=== PATIENT | male | born 1960 | race African-American/Black ===

== ENCOUNTER 2018-07-02 13:37 | Inpatient (IN) | payer MEDICAID, OTHER ==
[~2018-07-02] VITALS: Ht 152.4 cm; Wt 121.6 kg
[~2018-07-02 13:37] MED LIST: AMLO10TA80 PO; ASPI-1159 PO; CARSR90 MT; HYDR-2510 PO; METO25TA6 PO; NAPR-681 PO; OMEP20CA4 PO; TAMS-11 PO
[2018-07-02] MEDS ORDERED: SODIUM CHLORIDE 0.9% 1,000 ML IV ONE (18:32)
[2018-07-02] MEDS ORDERED: ONDANSETRON HCL 4MG/2ML INJ IV ONE (18:45)
[2018-07-02] MEDS ORDERED: AZITHROMYCIN 500 MG TABLET PO ONE (18:45)
[2018-07-02] MEDS ORDERED: CEFTRIAXONE 1 G PREMIX 50 ML IV ONE (18:45)
[2018-07-02] MEDS ORDERED: MORPHINE SULFATE 4 MG/ML CPJ (NOT FOR IM USE) IV ONE (18:45)
[2018-07-02 19:11] LABS: BASOPHILS % 0.8 % (0.0-2.0); CHLORIDE 108 mEq/L (98-107); EOSINOPHILS % 1.8 % (0.0-5.0); HEMATOCRIT. 37.5 % (42.0-52.0); LYMPHOCYTES % 30.2 % (20.0-50.0); MEAN CORPUSCULAR HEMOGLOBIN 27.1 pg (28.0-32.0); MEAN CORPUSCULAR VOLUME 84.6 fL (80.0-94.0); MEAN PLATELET VOLUME 10.2 fl (7.4-10.4); MONOCYTES % 8.8 % (2.0-8.0); NEUTROPHILS % 58.4 % (40.0-76.0); PLATELET 284 x1000/uL (130-400); RED BLOOD CELL COUNT 4.44 mill/uL (4.7-6.1); RED CELL DISTRIBUTION WIDTH 16.2 % (11.6-14.6)
[2018-07-02 19:15] LABS: ETHANOL BLOOD < 10 mg/dL
[2018-07-02 19:20] LABS: PARTIAL THROMBOPLASTIN TIME 28.6 sec (23.4-31.0); PROTHROMBIN TIME 9.7 sec (9.1-11.1)
[2018-07-02 19:37] LABS: CLARITY URINE CLEAR (CLEAR); COLOR URINE YELLOW (YELLOW); KETONES URINE TRACE (NEGATIVE); LEUKOCYTE ESTERASE URINE NEGATIVE (NEGATIVE); NITRITE URINE NEGATIVE (NEGATIVE); OCCULT BLOOD URINE NEGATIVE (NEGATIVE); PROTEIN URINE 3+ (NEGATIVE); SPECIFIC GRAVITY URINE 1.026 (1.005-1.030); UROBILINOGEN URINE 0.2 E.U./dL (0.2-1.0)
[2018-07-02 20:16] LABS: METHADONE URINE SCREEN NEGATIVE (NEGATIVE); OPIATES URINE SCREEN NEGATIVE (NEGATIVE)
[2018-07-02 20:17] LABS: *AMPHETAMINES SCREEN URINE PRESUMTIVE POSITIVE (NEGATIVE); *BARBITURATES SCREEN URINE NEGATIVE (NEGATIVE); *BENZODIAZEPINES SCREEN URINE NEGATIVE (NEGATIVE); *COCAINE SCREEN URINE NEGATIVE (NEGATIVE); CANNABINOID URINE SCREEN NEGATIVE (NEGATIVE); PHENCYCLIDINE URINE SCREEN PRESUMTIVE POSITIVE (NEGATIVE)
[2018-07-02] MEDS ORDERED: ASPIRIN 325MG EC TABLET PO ONE (20:45)
[2018-07-02] MEDS ORDERED: ACETAMINOPHEN 325MG TABLET PO PRN (21:15)
[2018-07-02] MEDS ORDERED: DOCUSATE SODIUM 100MG CAPSULE PO PRN (21:15)
[2018-07-02] MEDS ORDERED: MAGNESIUM/ALUMINUM HYDROXIDE/SIMETHICONE 30ML UDC PO PRN (21:15)
[2018-07-02] MEDS ORDERED: HYDROCODONE/ACETAMINOPHEN 5/325MG TABLET PO PRN (21:15)
[2018-07-02] MEDS ORDERED: LORAZEPAM 2MG/ML CPJ IV PRN (21:15)
[2018-07-02] MEDS ORDERED: MORPHINE SULFATE 4 MG/ML CPJ (NOT FOR IM USE) IV PRN (21:15)
[2018-07-02] MEDS ORDERED: GUAIFENESIN 200MG/10ML SUGAR FREE UDC PO PRN (21:15)
[2018-07-02] MEDS ORDERED: ONDANSETRON HCL 4MG/2ML INJ IV PRN (21:15)
[2018-07-02] MEDS ORDERED: NA PHOS,M-B/NA PHOS,DI-BA ENEMA 118ML PR PRN (21:15)
[2018-07-02] MEDS ORDERED: IPRATROPIUM/ALBUTEROL 0.5-3(2.5)MG/3ML NEB INH PRN (21:15)
[2018-07-02] MEDS ORDERED: ENOXAPARIN 40MG/0.4ML SYR SUBCUT SCH (21:15)
[2018-07-02] MEDS ORDERED: DIPHENHYDRAMINE 50MG/ML VIAL IV PRN (21:15)
[2018-07-03 06:38] LABS: BASOPHILS % 0.4 % (0.0-2.0); HEMATOCRIT. 37.2 % (42.0-52.0); HEMOGLOBIN. 12.1 g/dL (14.0-18.0); LYMPHOCYTES % 41.2 % (20.0-50.0); MEAN CORPUSCULAR HEMOGLOBIN 27.3 pg (28.0-32.0); MEAN CORPUSCULAR VOLUME 84.3 fL (80.0-94.0); MEAN PLATELET VOLUME 10.1 fl (7.4-10.4); MONOCYTES % 8.9 % (2.0-8.0); NEUTROPHILS % 47.5 % (40.0-76.0); PLATELET 276 x1000/uL (130-400); RED BLOOD CELL COUNT 4.42 mill/uL (4.7-6.1); RED CELL DISTRIBUTION WIDTH 16.4 % (11.6-14.6)
[2018-07-03] MEDS: CLONIDINE 0.1MG TABLET PO PRN ×2 (08:33→21:41)
[2018-07-03] MEDS ORDERED: ASPIRIN 81MG EC TABLET PO SCH (09:00)
[2018-07-03 09:55] LABS: CHLORIDE 109 mEq/L (98-107)
[2018-07-03 10:02] LABS: LDL CHOLESTEROL 102 mg/dL (5-100)
[2018-07-03 10:03] LABS: HDL CHOLESTEROL 47 mg/dL (40-59)
[2018-07-03 10:04] LABS: T4 FREE 1.06 ng/dL (0.76-1.46)
[2018-07-03] MEDS ORDERED: DEXTROSE 50% WATER 50ML SYRINGE IV PRN ×3 (10:45→11:15)
[2018-07-03 11:15] VITALS: BP 188/84
[2018-07-03] MEDS ORDERED: ENOXAPARIN 40MG/0.4ML SYR SUBCUT SCH ×2 (11:15)
[2018-07-03 12:00] VITALS: BP 188/84
[2018-07-03] MEDS ORDERED: BLOOD SUGAR DIAGNOSTIC STRIP TEST SCH ×2 (13:00→13:15)
[2018-07-03] MEDS ORDERED: INSULIN LISPRO 100 UNITS/ML SUBCUT SCH ×2 (13:20→13:30)
[2018-07-03] MEDS ORDERED: SODIUM POLYSTYRENE SULFONATE 15 G/60 ML BOT PO NR (14:00)
[2018-07-03] MEDS ORDERED: HYDRALAZINE HCL 50MG TABLET PO SCH ×2 (14:00→14:15)
[2018-07-03] MEDS: SODIUM CHLORIDE 0.45% 1,000 ML IV SCH (14:15)
[2018-07-03 15:43] VITALS: BP 188/84
[2018-07-03] MEDS: HYDRALAZINE HCL 50MG TABLET PO SCH ×2 (16:13→23:59)
[2018-07-03 16:24] VITALS: BP 162/82
[2018-07-03] MEDS: INSULIN LISPRO 100 UNITS/ML SUBCUT SCH ×2 (17:17→21:00)
[2018-07-03] MEDS: BLOOD SUGAR DIAGNOSTIC STRIP TEST SCH ×2 (17:17→21:18)
[2018-07-03 20:00] VITALS: BP 172/78
[2018-07-03 22:47] LABS: CREATINE KINASE 127 IU/L (39-308)
[2018-07-04] VITALS: BP 155/73
[2018-07-04] MEDS: SODIUM CHLORIDE 0.45% 1,000 ML IV SCH (00:15)
[2018-07-04 04:00] VITALS: BP 166/77
[2018-07-04] MEDS: HYDRALAZINE HCL 50MG TABLET PO SCH (05:57)
[2018-07-04] MEDS: BLOOD SUGAR DIAGNOSTIC STRIP TEST SCH (06:03)
[2018-07-04] MEDS: INSULIN LISPRO 100 UNITS/ML SUBCUT SCH (06:05)
[2018-07-04 06:55] VITALS: BP 162/78
[2018-07-04] MEDS ORDERED: DEXTROSE 50% WATER 50ML SYRINGE IV PRN (08:45)
[2018-07-05 04:14] LABS: CHLAMYDIA TRACHOMATIS NAA Negative (Negative); NEISSERIA GONORRHOEAE NAA Negative (Negative)
[2018-07-05 19:09] LABS: ANTI-NUCLEAR ANTIBODIES DIRECT Positive (Negative)
[2018-07-08 05:20] LABS: COMPLEMENT C3 154 mg/dL (82-167)
== END 2018-07-04 08:44 | disposition home or self-care (01) | DRG 194 ==
LOC: ER 13:37 → 8WST 20:32 → EDBEDREQTM 20:50 → EDBEDREQ 20:50 → ENRESERV 07-03 10:03 → ER 07-03 11:05 → 8WST 07-03 11:40 → UNDODISIN 07-04 08:44
PROVIDERS: ADMIT Internal Medicine; ATTEND Internal Medicine
DX: I13.0 Hypertensive heart and chronic kidney disease with heart failure and stage 1 through stage 4 chronic kidney disease, or unspecified chronic kidney disease (principal); N17.9 Acute kidney failure, unspecified; E11.22 Type 2 diabetes mellitus with diabetic chronic kidney disease; E86.0 Dehydration; E11.649 Type 2 diabetes mellitus with hypoglycemia without coma; E87.5 Hyperkalemia; R07.9 Chest pain, unspecified; D64.9 Anemia, unspecified; N18.9 Chronic kidney disease, unspecified; F19.10 Other psychoactive substance abuse, uncomplicated; R39.2 Extrarenal uremia; E78.5 Hyperlipidemia, unspecified; F10.10 Alcohol abuse, uncomplicated; F15.10 Other stimulant abuse, uncomplicated; F17.200 Nicotine dependence, unspecified, uncomplicated; Z79.82 Long term (current) use of aspirin; I25.10 Atherosclerotic heart disease of native coronary artery without angina pectoris; I50.9 Heart failure, unspecified; Z79.899 Other long term (current) drug therapy; M94.0 Chondrocostal junction syndrome [Tietze]
CPT/HCPCS: 36415; 71045; 74176; 76770; 76870; 78582; 80048; 80061; 80305; 82550; 82962; 83036; 83880; 84439; 84443; 84484; 85379; 86038; 86160; 87491; 87591; 93005; 93306; 93970; 93976; 96361; 96365; 96375; 99291; A9558; G0482; J0696; J1650; J2270; J2405; J7030

== ENCOUNTER 2019-01-10 12:41 | Inpatient (IN) | payer OTHER ==
[~2019-01-10] VITALS: Ht 165.1 cm; Wt 85.3 kg
[~2019-01-10 12:41] MED LIST changes: -ASPI-1159 PO; +ASPI-1393 PO
[2019-01-10] MEDS ORDERED: MORPHINE SULFATE 4 MG/ML CPJ (NOT FOR IM USE) IV STA (14:31)
[2019-01-10] MEDS ORDERED: ONDANSETRON HCL 4MG/2ML INJ IV STA (14:31)
[2019-01-10] MEDS ORDERED: SODIUM CHLORIDE 0.9% 1000ML BAG (SEPSIS BOLUS) IV ONE (14:45)
[2019-01-10] MEDS ORDERED: PIPERACILLIN/TAZ 3.375G PREMIX 50 ML IV ONE (14:45)
[2019-01-10] MEDS ORDERED: TETANUS, DIPHTHERIA, PERTUSSIS VAC/PF 0.5ML (>7YR OLD) IM ONE (14:45)
[2019-01-10] MEDS ORDERED: VANCOMYCIN 1 G PREMIX 200 ML IV ONE (14:45)
[2019-01-10] MEDS ORDERED: CLONIDINE 0.2MG TABLET PO ONE (14:45)
[2019-01-10 14:46] LABS: BASOPHILS % 0.8 % (0.0-2.0); EOSINOPHILS % 1.3 % (0.0-5.0); HEMATOCRIT. 40.8 % (42.0-52.0); HEMOGLOBIN. 13.4 g/dL (14.0-18.0); LYMPHOCYTES % 21.5 % (20.0-50.0); MEAN CORPUSCULAR HEMOGLOBIN 27.1 pg (28.0-32.0); MEAN CORPUSCULAR VOLUME 82.1 fL (80.0-94.0); MEAN PLATELET VOLUME 9.8 fl (7.4-10.4); NEUTROPHILS % 66.4 % (40.0-76.0); PLATELET 223 x1000/uL (130-400); RED BLOOD CELL COUNT 4.97 mill/uL (4.7-6.1); RED CELL DISTRIBUTION WIDTH 17.7 % (11.6-14.6)
[2019-01-10 14:50] LABS: CHLORIDE 105 mEq/L (98-107)
[2019-01-10 14:52] LABS: PARTIAL THROMBOPLASTIN TIME 31.5 sec (23.4-31.0); PROTHROMBIN TIME 9.8 sec (9.6-11.0)
[2019-01-10 16:10] LABS: CLARITY URINE CLEAR (CLEAR); COLOR URINE YELLOW (YELLOW); KETONES URINE NEGATIVE (NEGATIVE); LEUKOCYTE ESTERASE URINE NEGATIVE (NEGATIVE); NITRITE URINE NEGATIVE (NEGATIVE); OCCULT BLOOD URINE TRACE (NEGATIVE); PH URINE 6.5 (4.5-8.0); PROTEIN URINE 3+ (NEGATIVE); SPECIFIC GRAVITY URINE 1.014 (1.005-1.030); UROBILINOGEN URINE 0.2 E.U./dL (0.2-1.0)
[2019-01-10] MEDS ORDERED: ASPIRIN 325MG EC TABLET PO ONE (17:30)
[2019-01-10] MEDS ORDERED: LABETALOL 5MG/ML SYR 20 MG/4 ML SYRINGE IV NR (20:00)
[2019-01-10] MEDS ORDERED: ONDANSETRON HCL 4MG/2ML INJ IV PRN (20:00)
[2019-01-10] MEDS ORDERED: HYDROCODONE/ACETAMINOPHEN 5/325MG TABLET PO PRN (20:00)
[2019-01-10] MEDS ORDERED: ACETAMINOPHEN 325MG TABLET PO PRN (20:00)
[2019-01-10] MEDS: CLONIDINE 0.1MG TABLET PO PRN (21:17)
[2019-01-10 21:55] VITALS: BP 180/100
[2019-01-10 22:05] VITALS: BP 186/91
[2019-01-10] MEDS ORDERED: HYDRALAZINE 20MG/ML VIAL IV PRN (22:17)
[2019-01-10] MEDS: AMPICILLIN SOD/SULBACTAM NA 1.5 G in SODIUM CHLORIDE 0.9% 50 ML IV SCH (23:50)
[2019-01-10] MEDS: VANCOMYCIN 750 MG PREMIX 150 ML IV SCH (23:50)
[2019-01-11] VITALS: BP 175/79
[2019-01-11] MEDS: CLONIDINE 0.1MG TABLET PO PRN ×2 (02:45→04:05)
[2019-01-11 04:00] VITALS: BP_SYST 169; BP_SYST 192; BP_DIAS 89
[2019-01-11] MEDS: AMPICILLIN SOD/SULBACTAM NA 1.5 G in SODIUM CHLORIDE 0.9% 50 ML IV SCH ×2 (05:12→12:13)
[2019-01-11 06:05] LABS: BASOPHILS % 0.9 % (0.0-2.0); EOSINOPHILS % 1.7 % (0.0-5.0); HEMATOCRIT. 34.4 % (42.0-52.0); HEMOGLOBIN. 11.4 g/dL (14.0-18.0); MEAN CORPUSCULAR HEMOGLOBIN 27.3 pg (28.0-32.0); MEAN CORPUSCULAR VOLUME 82.5 fL (80.0-94.0); MEAN PLATELET VOLUME 9.8 fl (7.4-10.4); MONOCYTES % 10.9 % (2.0-8.0); NEUTROPHILS % 63.5 % (40.0-76.0); PLATELET 202 x1000/uL (130-400); RED BLOOD CELL COUNT 4.17 mill/uL (4.7-6.1); RED CELL DISTRIBUTION WIDTH 17.5 % (11.6-14.6)
[2019-01-11 08:15] VITALS: BP 200/100
[2019-01-11] MEDS: NIFEDIPINE XL 60MG TAB PO SCH ×2 (08:40→20:29)
[2019-01-11] MEDS: MORPHINE SULFATE 2 MG/ML CPJ (NOT FOR IM USE) IV PRN ×2 (08:40→15:30)
[2019-01-11] MEDS: METOPROLOL TARTRATE 100MG TABLET PO SCH ×2 (08:40→20:29)
[2019-01-11] MEDS: ENOXAPARIN 40MG/0.4ML SYR SUBCUT SCH (08:41)
[2019-01-11] MEDS ORDERED: TETANUS AND DIPHTHERIA TOX/PF 0.5ML SYR (ADULT) IM ONE (10:00)
[2019-01-11] MEDS ORDERED: LABETALOL 5MG/ML SYR 20 MG/4 ML SYRINGE IV ONE (12:45)
[2019-01-11] MEDS: LOSARTAN POTASSIUM 100 MG TABLET PO SCH (14:04)
[2019-01-11] MEDS: CLONIDINE 0.1MG TABLET PO SCH ×2 (14:05→22:13)
[2019-01-11] MEDS: VANCOMYCIN 750 MG PREMIX 150 ML IV SCH (16:48)
[2019-01-11 20:00] VITALS: BP 149/76
[2019-01-11] MEDS: AMPICILLIN/SULBACTAM 1.5G in SODIUM CHLORIDE 0.9% 50ML IV SCH (20:46)
[2019-01-12] VITALS: BP 138/66
[2019-01-12] MEDS: AMPICILLIN/SULBACTAM 1.5G in SODIUM CHLORIDE 0.9% 50ML IV SCH ×2 (01:34→09:14)
[2019-01-12 04:00] VITALS: BP 137/73
[2019-01-12] MEDS ORDERED: DEXTROSE 50% WATER 50ML SYRINGE IV PRN (05:30)
[2019-01-12] MEDS: CLONIDINE 0.1MG TABLET PO SCH ×2 (05:42→16:51)
[2019-01-12] MEDS: BLOOD SUGAR DIAGNOSTIC STRIP TEST SCH ×2 (06:23→12:42)
[2019-01-12] MEDS: INSULIN LISPRO 100 UNITS/ML SUBCUT SCH ×2 (06:23→13:37)
[2019-01-12 07:38] LABS: BASOPHILS % 1.2 % (0.0-2.0); EOSINOPHILS % 1.6 % (0.0-5.0); HEMATOCRIT. 37.2 % (42.0-52.0); HEMOGLOBIN. 12.1 g/dL (14.0-18.0); MEAN CORPUSCULAR HEMOGLOBIN 26.8 pg (28.0-32.0); MEAN CORPUSCULAR VOLUME 82.5 fL (80.0-94.0); MEAN PLATELET VOLUME 9.7 fl (7.4-10.4); MONOCYTES % 9.7 % (2.0-8.0); NEUTROPHILS % 58.5 % (40.0-76.0); PLATELET 212 x1000/uL (130-400); RED BLOOD CELL COUNT 4.51 mill/uL (4.7-6.1); RED CELL DISTRIBUTION WIDTH 17.5 % (11.6-14.6)
[2019-01-12 08:00] VITALS: BP 145/70
[2019-01-12] MEDS: METOPROLOL TARTRATE 100MG TABLET PO SCH (09:00)
[2019-01-12] MEDS: LOSARTAN POTASSIUM 100 MG TABLET PO SCH (09:13)
[2019-01-12] MEDS: NIFEDIPINE XL 60MG TAB PO SCH (09:13)
[2019-01-12] MEDS: ENOXAPARIN 40MG/0.4ML SYR SUBCUT SCH (09:14)
[2019-01-12 12:00] VITALS: BP 143/58
[2019-01-12] MEDS: VANCOMYCIN 750 MG PREMIX 150 ML IV SCH (13:39)
[2019-01-12 16:00] VITALS: BP 177/81
[2019-01-12] MEDS ORDERED: VANCOMYCIN 750 MG PREMIX 150 ML IV SCH (23:00)
== END 2019-01-12 17:00 | disposition left against medical advice (07) | DRG 383 ==
LOC: ER 12:41 → 8WST 17:21 → EDBEDREQ 17:23 → ENRESERV 20:16
PROVIDERS: ADMIT Internal Medicine; ATTEND Internal Medicine
DX: L03.116 Cellulitis of left lower limb (principal); N17.9 Acute kidney failure, unspecified; E11.22 Type 2 diabetes mellitus with diabetic chronic kidney disease; N18.9 Chronic kidney disease, unspecified; I12.9 Hypertensive chronic kidney disease with stage 1 through stage 4 chronic kidney disease, or unspecified chronic kidney disease; R79.89 Other specified abnormal findings of blood chemistry; I16.0 Hypertensive urgency; F12.90 Cannabis use, unspecified, uncomplicated; F15.90 Other stimulant use, unspecified, uncomplicated; E66.9 Obesity, unspecified; E78.00 Pure hypercholesterolemia, unspecified; E78.5 Hyperlipidemia, unspecified; Z68.31 Body mass index [BMI] 31.0-31.9, adult; Z79.82 Long term (current) use of aspirin; Z71.3 Dietary counseling and surveillance; Z71.51 Drug abuse counseling and surveillance of drug abuser
CPT/HCPCS: 36415; 71045; 73630; 80048; 80202; 82962; 83605; 84145; 84484; 90714; 90715; 93005; 93970; 96365; 96375; 99285; J0295; J0360; J1650; J1815; J2270; J2405; J2543; J3370; J7030

== ENCOUNTER 2019-05-24 13:01 | Emergency (ER) | payer MEDICAID ==
[~2019-05-24] VITALS: Ht 177.8 cm; Wt 110.0 kg
[2019-05-24] MEDS ORDERED: HYDROCODONE/ACETAMINOPHEN 5/325MG TABLET PO STA (13:47)
[2019-05-24] MEDS ORDERED: IBUPROFEN 600MG TABLET PO STA (13:47)
[2019-05-24 13:57] LABS: CLARITY URINE CLEAR (CLEAR); COLOR URINE YELLOW (YELLOW); KETONES URINE NEGATIVE (NEGATIVE); LEUKOCYTE ESTERASE URINE NEGATIVE (NEGATIVE); NITRITE URINE NEGATIVE (NEGATIVE); OCCULT BLOOD URINE NEGATIVE (NEGATIVE); PROTEIN URINE 1+ (NEGATIVE); SPECIFIC GRAVITY URINE 1.017 (1.005-1.030); UROBILINOGEN URINE 0.2 E.U./dL (0.2-1.0)
[2019-05-24 14:23] LABS: CHLORIDE 111 mEq/L (98-107); INR 0.9; PROTHROMBIN TIME 9.5 sec (9.6-11.0)
[2019-05-24 14:30] LABS: BASOPHILS % 1.3 % (0.0-2.0); EOSINOPHILS % 1.2 % (0.0-5.0); LYMPHOCYTES % 29.8 % (20.0-50.0); MEAN CORPUSCULAR HEMOGLOBIN 27.2 pg (28.0-32.0); MEAN CORPUSCULAR VOLUME 83.6 fL (80.0-94.0); MEAN PLATELET VOLUME 8.8 fl (7.4-10.4); MONOCYTES % 8.6 % (2.0-8.0); NEUTROPHILS % 59.1 % (40.0-76.0); PLATELET 201 x1000/uL (130-400); RED BLOOD CELL COUNT 4.79 mill/uL (4.7-6.1); RED CELL DISTRIBUTION WIDTH 17.7 % (11.6-14.6)
[2019-05-24 16:21] VITALS: BP 147/68
== END 2019-05-24 16:21 | disposition home or self-care (01) ==
LOC: ER 13:01
DX: N50.811 Right testicular pain (principal); R30.0 Dysuria; E11.9 Type 2 diabetes mellitus without complications; E78.00 Pure hypercholesterolemia, unspecified; I10 Essential (primary) hypertension; F12.10 Cannabis abuse, uncomplicated; F15.10 Other stimulant abuse, uncomplicated; Z79.82 Long term (current) use of aspirin; Z79.899 Other long term (current) drug therapy
CPT/HCPCS: 36415; 76870; 81003; 86850; 86900; 93976; 99284